=== PATIENT | female | born 1975 | race Caucasian/White ===

== ENCOUNTER 2017-11-05 12:59 | Emergency (ER) | payer SELFPAY ==
[~2017-11-05] VITALS: Ht 160 cm; Wt 70.0 kg
[2017-11-05] MEDS ORDERED: ALBU2SYR3 PO (13:02)
[2017-11-05] MEDS ORDERED: IPRATROPIUM BROMIDE (0.02%) 0.5MG/2.5ML NEB HHN STA ×2 (13:19→13:51)
[2017-11-05] MEDS ORDERED: ALBUTEROL (0.083%) 2.5MG/3ML NEB HHN STA ×2 (13:19→13:51)
[2017-11-05] MEDS ORDERED: DEXAMETHASONE 10 MG/ML VIAL IM ONE (13:30)
[2017-11-05 14:04] VITALS: BP 108/79
[2017-11-05 14:15] LABS: BASOPHILS % 0.9 % (0.0-2.0); EOSINOPHILS % 13.4 % (0.0-5.0); HEMATOCRIT. 35.5 % (36.0-48.0); HEMOGLOBIN. 11.7 g/dL (12.0-16.0); LYMPHOCYTES % 35.2 % (20.0-50.0); MEAN CORPUSCULAR HEMOGLOBIN 25.7 pg (28.0-32.0); MEAN CORPUSCULAR VOLUME 78.1 fL (81.0-99.0); MEAN PLATELET VOLUME 7.5 fl (7.4-10.4); MONOCYTES % 6.8 % (2.0-8.0); NEUTROPHILS % 43.7 % (40.0-76.0); PLATELET 351 x1000/uL (130-400); RED BLOOD CELL COUNT 4.54 mill/uL (4.2-5.4); RED CELL DISTRIBUTION WIDTH 14.5 % (11.6-14.6)
[2017-11-05 14:19] LABS: CHLORIDE 107 mEq/L (98-107); PROTHROMBIN TIME 10.6 sec (9.4-11.6)
[2017-11-05 14:22] LABS: HCG SCREEN NEGATIVE
== END 2017-11-05 16:42 | disposition home or self-care (01) ==
LOC: ER 13:01
DX: J45.901 Unspecified asthma with (acute) exacerbation (principal); E88.09 Other disorders of plasma-protein metabolism, not elsewhere classified; R74.8 Abnormal levels of other serum enzymes; E83.51 Hypocalcemia
CPT/HCPCS: 36415; 71045; 80053; 84703; 85025; 85610; 96372; 99285; 99406; J1100; J7611

== ENCOUNTER 2018-02-13 05:51 | Emergency (ER) | payer SELFPAY ==
[~2018-02-13] VITALS: Ht 152.4 cm; Wt 73.2 kg
[~2018-02-13 05:51] MED LIST: ALBU2SYR3 PO
[2018-02-13] MEDS ORDERED: ALBUTEROL (0.083%) 2.5MG/3ML NEB HHN STA (06:24)
[2018-02-13] MEDS ORDERED: METHYLPREDNISOLONE SOD SUCC 125 MG/2 ML VIAL IV STA (06:24)
[2018-02-13] MEDS ORDERED: IPRATROPIUM BROMIDE (0.02%) 0.5MG/2.5ML NEB HHN STA (06:24)
[2018-02-13 06:56] LABS: HEMATOCRIT. 36.5 % (36.0-48.0); HEMOGLOBIN. 11.8 g/dL (12.0-16.0); MEAN CORPUSCULAR VOLUME 80.4 fL (81.0-99.0); MEAN PLATELET VOLUME 7.5 fl (7.4-10.4); PLATELET 381 x1000/uL (130-400); RED BLOOD CELL COUNT 4.54 mill/uL (4.2-5.4); RED CELL DISTRIBUTION WIDTH 14.9 % (11.6-14.6)
[2018-02-13 07:00] LABS: CHLORIDE 104 mEq/L (98-107)
[2018-02-13 07:10] LABS: HCG SCREEN NEGATIVE
[2018-02-13 07:21] LABS: PLATELET ESTIMATE NORMAL
[2018-02-13] MEDS ORDERED: POTASSIUM CHLORIDE 20MEQ TABLET SR PO ONE (07:45)
[2018-02-13] MEDS ORDERED: KCL 20MEQ/100ML PREMIX 100 ML IV ONE (07:45)
[2018-02-13 11:33] LABS: CHLORIDE 104 mEq/L (98-107)
[2018-02-13 11:51] VITALS: BP 117/69
== END 2018-02-13 11:59 | disposition home or self-care (01) ==
LOC: ER 05:51
DX: J45.901 Unspecified asthma with (acute) exacerbation (principal); E87.6 Hypokalemia
CPT/HCPCS: 36415; 71045; 80048; 80053; 84703; 85025; 93005; 96365; 96375; 99285; J2930; J3480; J7611

== ENCOUNTER 2018-06-11 22:45 | Emergency (ER) | payer SELFPAY ==
[~2018-06-11] VITALS: Ht 149.9 cm; Wt 74.5 kg
[2018-06-11] MEDS ORDERED: METOPROLOL TARTRATE 25MG TABLET PO ONE (23:45)
[2018-06-11] MEDS: CEPHALEXIN 250MG CAPSULE PO ONE (23:56)
[2018-06-12 00:38] LABS: HEMATOCRIT 35.5 % (36.0-48.0); HEMOGLOBIN 11.5 g/dL (12.0-16.0); MEAN CORPUSCULAR HEMOGLOBIN 25.6 pg (28.0-32.0); MEAN CORPUSCULAR VOLUME 79.1 fL (81.0-99.0); PLATELET 414 x1000/uL (130-400); RED BLOOD CELL COUNT 4.49 mill/uL (4.2-5.4); RED CELL DISTRIBUTION WIDTH 13.9 % (11.6-14.6)
[2018-06-12 00:43] LABS: CHLORIDE 104 mEq/L (98-107)
[2018-06-12 01:33] VITALS: BP 148/83
== END 2018-06-12 01:36 | disposition home or self-care (01) ==
LOC: ER 22:45
DX: S80.861A Insect bite (nonvenomous), right lower leg, initial encounter (principal); T69.022A Immersion foot, left foot, initial encounter; L03.032 Cellulitis of left toe; M25.512 Pain in left shoulder; R07.89 Other chest pain; F12.10 Cannabis abuse, uncomplicated; K80.20 Calculus of gallbladder without cholecystitis without obstruction; Z98.890 Other specified postprocedural states; Z79.899 Other long term (current) drug therapy; W57.XXXA Bitten or stung by nonvenomous insect and other nonvenomous arthropods, initial encounter; Y93.89 Activity, other specified; Y92.89 Other specified places as the place of occurrence of the external cause; Y99.8 Other external cause status
CPT/HCPCS: 36415; 71045; 84484; 85027; 85379; 93005; 99284

== ENCOUNTER 2018-06-18 05:05 | Emergency (ER) | payer SELFPAY ==
[~2018-06-18] VITALS: Ht 149.9 cm; Wt 73.0 kg
[2018-06-18 07:21] VITALS: BP 150/90
== END 2018-06-18 07:22 | disposition home or self-care (01) ==
LOC: ER 05:05
DX: L72.11 Pilar cyst (principal); R03.0 Elevated blood-pressure reading, without diagnosis of hypertension; F12.90 Cannabis use, unspecified, uncomplicated
CPT/HCPCS: 99283

== ENCOUNTER 2018-11-02 01:06 | Emergency (ER) | payer SELFPAY ==
[~2018-11-02] VITALS: Ht 149.9 cm; Wt 73.0 kg
[2018-11-02 01:07] VITALS: BP 157/94
== END 2018-11-02 04:12 | disposition left against medical advice (07) ==
LOC: ER 03:53
DX: Z53.21 Procedure and treatment not carried out due to patient leaving prior to being seen by health care provider (principal)

== ENCOUNTER 2018-11-06 01:03 | Emergency (ER) | payer SELFPAY ==
[~2018-11-06] VITALS: Ht 162.6 cm; Wt 79.0 kg
[2018-11-06] MEDS ORDERED: SODIUM CHLORIDE 0.9% 1,000 ML IV ONE (02:11)
[2018-11-06] MEDS ORDERED: ONDANSETRON HCL 4MG/2ML INJ IV STA (02:11)
[2018-11-06] MEDS ORDERED: METHYLPREDNISOLONE SOD SUCC 125 MG/2 ML VIAL IV STA (02:11)
[2018-11-06] MEDS ORDERED: IPRATROPIUM BROMIDE (0.02%) 0.5MG/2.5ML NEB HHN STA (02:11)
[2018-11-06] MEDS ORDERED: ALBUTEROL (0.083%) 2.5MG/3ML NEB HHN STA (02:11)
[2018-11-06] MEDS ORDERED: GUAIFENESIN/CODEINE 200-20MG/10ML UDC PO ONE (02:15)
[2018-11-06 02:21] LABS: BASOPHILS % 0.5 % (0.0-2.0); EOSINOPHILS % 0.8 % (0.0-5.0); HEMATOCRIT. 40.1 % (36.0-48.0); HEMOGLOBIN. 12.9 g/dL (12.0-16.0); LYMPHOCYTES % 19.2 % (20.0-50.0); MEAN CORPUSCULAR HEMOGLOBIN 25.8 pg (28.0-32.0); MEAN CORPUSCULAR VOLUME 79.9 fL (81.0-99.0); MEAN PLATELET VOLUME 8.2 fl (7.4-10.4); MONOCYTES % 8.3 % (2.0-8.0); NEUTROPHILS % 71.2 % (40.0-76.0); PLATELET 452 x1000/uL (130-400); RED BLOOD CELL COUNT 5.02 mill/uL (4.2-5.4); RED CELL DISTRIBUTION WIDTH 14.5 % (11.6-14.6)
[2018-11-06 02:26] LABS: CHLORIDE 99 mEq/L (98-107)
[2018-11-06 04:55] VITALS: BP 146/85
== END 2018-11-06 04:56 | disposition home or self-care (01) ==
LOC: ER 01:03
DX: J45.901 Unspecified asthma with (acute) exacerbation (principal); H66.92 Otitis media, unspecified, left ear; Z79.899 Other long term (current) drug therapy
CPT/HCPCS: 36415; 71045; 80053; 81025; 83605; 83880; 84484; 85025; 93005; 94640; 96374; 96375; 99284; J2405; J2930; J7030; J7611; Z7610

== ENCOUNTER → 2019-02-21 | Emergency (ER) | payer SELFPAY ==
[~2019-02-21] VITALS: Ht 149.9 cm; Wt 75.4 kg
[2019-02-21 01:23] VITALS: BP 128/93
== END ==
LOC: ER 01:17
DX: K08.89 Other specified disorders of teeth and supporting structures (principal); Z53.21 Procedure and treatment not carried out due to patient leaving prior to being seen by health care provider

== ENCOUNTER 2019-02-26 19:53 | Emergency (ER) | payer SELFPAY ==
[~2019-02-26] VITALS: Ht 149.9 cm; Wt 73.0 kg
[2019-02-26 20:28] VITALS: BP 140/110
== END 2019-02-27 02:18 | disposition left against medical advice (07) ==
LOC: ER 19:53
DX: Z53.21 Procedure and treatment not carried out due to patient leaving prior to being seen by health care provider (principal)

== ENCOUNTER 2019-04-23 21:40 | Emergency (ER) | payer MEDICAID ==
[~2019-04-23] VITALS: Ht 165.1 cm; Wt 73.0 kg
[2019-04-23] MEDS ORDERED: ACETAMINOPHEN 325MG TABLET PO ONE (22:45)
[2019-04-23] MEDS ORDERED: ALBUTEROL (0.083%) 2.5MG/3ML NEB HHN ONE (22:45)
[2019-04-23] MEDS ORDERED: CETIRIZINE 10MG TABLET PO SCH (22:45)
[2019-04-24 00:17] VITALS: BP 121/75
== END 2019-04-24 00:10 | disposition home or self-care (01) ==
LOC: ER 21:40
DX: R05 Cough (principal); R03.0 Elevated blood-pressure reading, without diagnosis of hypertension
CPT/HCPCS: 71045; 94640; 99283; J7611; Z7610

== ENCOUNTER 2019-11-14 14:54 | Emergency (ER) | payer MEDICAID ==
[~2019-11-14] VITALS: Ht 167.6 cm; Wt 100.0 kg
[2019-11-14] MEDS ORDERED: SODIUM CHLORIDE 0.9% 500 ML IV ONE (15:00)
[2019-11-14] MEDS ORDERED: ONDANSETRON HCL 4MG/2ML INJ IV ONE (15:00)
[2019-11-14 15:20] LABS: BASOPHILS % 0.2 % (0.0-2.0); EOSINOPHILS % 7.4 % (0.0-5.0); HEMATOCRIT. 38.8 % (36.0-48.0); HEMOGLOBIN. 12.7 g/dL (12.0-16.0); LYMPHOCYTES % 33.2 % (20.0-50.0); MEAN CORPUSCULAR HEMOGLOBIN 26.4 pg (28.0-32.0); MEAN CORPUSCULAR VOLUME 80.6 fL (81.0-99.0); MONOCYTES % 8.1 % (2.0-8.0); NEUTROPHILS % 51.1 % (40.0-76.0); PLATELET 386 x1000/uL (130-400); RED BLOOD CELL COUNT 4.81 mill/uL (4.2-5.4); RED CELL DISTRIBUTION WIDTH 14.4 % (11.6-14.6)
[2019-11-14 15:26] LABS: CHLORIDE 108 mEq/L (98-107)
[2019-11-14 15:29] LABS: ETHANOL BLOOD 132 mg/dL
[2019-11-14 15:33] LABS: *BARBITURATES SCREEN URINE NEGATIVE (NEGATIVE); *BENZODIAZEPINES SCREEN URINE NEGATIVE (NEGATIVE); *COCAINE SCREEN URINE NEGATIVE (NEGATIVE); METHADONE URINE SCREEN NEGATIVE (NEGATIVE); PHENCYCLIDINE URINE SCREEN NEGATIVE (NEGATIVE)
[2019-11-14 15:37] LABS: HCG SCREEN NEGATIVE
[2019-11-14 15:38] LABS: *AMPHETAMINES SCREEN URINE PRESUMTIVE POSITIVE (NEGATIVE); CANNABINOID URINE SCREEN PRESUMTIVE POSITIVE (NEGATIVE); OPIATES URINE SCREEN PRESUMTIVE POSITIVE (NEGATIVE)
[2019-11-14 23:00] VITALS: BP 136/84
== END 2019-11-14 23:05 | disposition home or self-care (01) ==
LOC: ER 14:54
DX: F19.10 Other psychoactive substance abuse, uncomplicated (principal); R45.1 Restlessness and agitation; J45.909 Unspecified asthma, uncomplicated
CPT/HCPCS: 36415; 71045; 80053; 80305; 80320; 83880; 84484; 84703; 85025; 93005; 96374; 99285; J2405; J7040; G0480